=== PATIENT | male | born 1960 | race Caucasian/White ===

== ENCOUNTER 2023-11-22 20:47 | Inpatient (IN) | payer OTHER ==
[~2023-11-22] VITALS: Ht 167.6 cm; Wt 91.6 kg
[2023-11-22 21:01] VITALS: O2SAT 97
[2023-11-22 21:02] VITALS: BP 124/60; PULSE 70; RESP 14; TEMP 98; O2SAT 100
[2023-11-22 22:02] LABS: BASOPHILS # (AUTO) 0.1 K/uL (0.00-0.22); BASOPHILS % (AUTO) 0.7 % (0.0-2.0); EOSINOPHILS # (AUTO) 0.1 K/uL (0-0.4); EOSINOPHILS % (AUTO) 0.5 % (0.0-4.0); HEMATOCRIT 35.4 % (36-52); HEMOGLOBIN 12.1 g/dL (12.0-18.0); LYMPHOCYTES # (AUTO) 0.7 K/uL (2.0-11.5); LYMPHOCYTES % (AUTO) 7.1 % (20.5-51.1); MEAN CORPUSCULAR HEMOGLOBIN 31 pg (27-31); MEAN CORPUSCULAR HGB CONC 34 g/dL (33-37); MONOCYTES # (AUTO) 0.6 K/uL (0.8-1.0); MONOCYTES % (AUTO) 6.5 % (1.7-9.3); NEUTROPHILS # (AUTO) 8.3 K/uL (1.8-7.7); NEUTROPHILS % (AUTO) 85.2 % (42.2-75.2); PLATELET COUNT (AUTO) 230 K/uL (140-450); RED BLOOD CELL COUNT(AUTO) 3.89 MIL/uL (4.20-6.10); RED CELL DISTRIBUTION WIDTH 15.5 % (11.6-13.7); WHITE BLOOD COUNT (AUTO) 9.8 K/uL (4.8-10.8)
[2023-11-22 22:14] LABS: ANION GAP 18.7 (8-16); CALCIUM 8.7 mg/dL (8.5-10.1); CARBON DIOXIDE 22.8 mmol/L (21-32); CREATININE 1.6 mg/dL (0.6-1.3); POTASSIUM 3.5 mmol/L (3.5-5.1)
[2023-11-22 22:21] LABS: ALANINE AMINOTRANSFERASE 29 U/L (12-78); ALBUMIN 3.3 g/dL (3.4-5.0); ALCOHOL, BLOOD < 3 mg/dL (<10); ALKALINE PHOSPHATASE 95 U/L (50-136); ASPARTATE AMINOTRANSFERASE 25 U/L (15-37); BILIRUBIN,DIRECT 0.2 mg/dL (0.0-0.3); CREATINE KINASE, TOTAL 68 U/L (39-308); TOTAL BILIRUBIN 0.7 mg/dL (0.0-1.0); TOTAL PROTEIN, SERUM 7.9 g/dL (6.4-8.2)
[2023-11-22 23:28] LABS: LACTIC ACID 4.3 mmol/L (0.4-2.0)
[2023-11-22 23:32] VITALS: O2SAT 100
[2023-11-22] MEDS: ONDANSETRON 4 MG/2 ML VIAL IVP ONE (23:33)
[2023-11-22] MEDS: CEFEPIME 2,000 MG in DEXTROSE 5% 100 ML IV ONE (23:33)
[2023-11-22 23:36] LABS: BLOOD GAS O2 SAT% 98.9 % (92.0-98.5); BLOOD GAS PCO2 16.7 mmHg (35-45); BLOOD GAS PH 7.674 (7.35-7.45); BLOOD GAS PO2 116.6 mmHg (75-100)
[2023-11-22] MEDS: NACL 0.9% 2,000 ML IV ONE (23:40)
[2023-11-22] MEDS: LORazepam 2 MG/ML VIAL IVP ONE (23:55)
[2023-11-23] VITALS (7 sets, daily range): BP systolic 108–123; BP diastolic 55–58; PULSE 78–80; RESP 18; TEMP 96.8–98.8; O2SAT 97–98
[2023-11-23] MEDS: diphenhydrAMINE 50 MG/ML VIAL IVP ONE (00:59)
[2023-11-23] MEDS: HALOPERIDOL IM 5 MG/ML VIAL IVP ONE (01:00)
[2023-11-23] MEDS ORDERED: CEFEPIME 2,000 MG VIAL IV ONE (01:06)
[2023-11-23 01:39] LABS: APPEARANCE,URINE CLEAR (CLEAR); BILIRUBIN,URINE NEGATIVE (NEGATIVE); BLOOD, URINE NEGATIVE (NEGATIVE); COLOR,URINE YELLOW (YELLOW); LEUKOCYTE ESTERASE ,URINE NEGATIVE (NEGATIVE); NITRITE, URINE NEGATIVE (NEGATIVE); PH,URINE 7.5 (5.0-9.0); PROTEIN,URINE TRACE (NEGATIVE); UGLUCOSE NEGATIVE (NEGATIVE); UROBILINOGEN,URINE 0.2 EU/dL (0.2 - 1)
[2023-11-23] MEDS: ACETAMINOPHEN 650 MG SUPP RC ONE (01:41)
[2023-11-23 02:07] LABS: AMPHETAMINE, URINE NEGATIVE ng/ml (NEG <=1000); BARBITURATE, URINE NEGATIVE ng/ml (NEG <=200); BENZODIAZEPINE, URINE POSITIVE ng/mL (NEG <=200); CANNABINOID, URINE NEGATIVE ng/mL (NEG <=50); COCAINE, URINE NEGATIVE ng/mL (NEG <=300); OPIATE, URINE NEGATIVE ng/mL (NEG <=2000); PHENCYCLIDINE SCREEN,URINE NEGATIVE ng/mL (NEG <=25)
[2023-11-23 04:01] LABS: INR 1.16 (0.8-1.2); PARTIAL THROMBOPLASTIN TIME 25.6 secs (22-35.6); PROTHROMBIN TIME 12.1 secs (10.8-13.4)
[2023-11-23] MEDS ORDERED: CEFEPIME 2,000 MG in DEXTROSE 5% 100 ML IV SCH (06:05)
[2023-11-23] MEDS: NACL 0.9% 1,000 ML IV SCH (06:05)
[2023-11-23] MEDS ORDERED: ONDANSETRON 4 MG/2 ML VIAL IVP PRN (06:05)
[2023-11-23 10:15] LABS: MAGNESIUM 1.1 mg/dL (1.8-2.4); PHOSPHORUS 3.5 mg/dL (2.5-4.9)
[2023-11-23] MEDS ORDERED: PANT40EC (13:35)
[2023-11-23] MEDS ORDERED: LORazepam 2 MG/ML VIAL IM SCH (13:40)
[2023-11-23] MEDS: LORazepam 2 MG/ML VIAL IM/IVP SCH (13:46)
[2023-11-23] MEDS ORDERED: ATOR40TA PO (13:54)
[2023-11-23] MEDS ORDERED: SYN.05 PO (13:54)
[2023-11-23] MEDS ORDERED: RIVA20TA PO (13:54)
[2023-11-23] MEDS ORDERED: PRO5 PO (13:54)
[2023-11-23] MEDS: CEFEPIME 2,000 MG in DEXTROSE 5% 100 ML IV SCH (14:12)
[2023-11-23] MEDS: MAG SULF 2000 MG/WATER PREMIX 50 ML IV SCH (16:47)
[2023-11-23] MEDS ORDERED: AZITHROMYCIN 500 MG in DEXTROSE 5% 250 ML IV SCH (18:00)
[2023-11-23] MEDS: AZITHROMYCIN 500 MG in DEXTROSE 5% 250 ML IV SCH (20:48)
[2023-11-24 04:00] VITALS: BP 125/71; PULSE 81; RESP 20; TEMP 96.6; O2SAT 98
[2023-11-24] MEDS ORDERED: diphenhydrAMINE 50 MG/ML VIAL IVP SCH (06:40)
[2023-11-24] MEDS ORDERED: LORazepam 2 MG/ML VIAL IM/IVP SCH (06:40)
[2023-11-24 07:34] VITALS: BP 144/78; PULSE 79; RESP 16; TEMP 95.2; O2SAT 99
[2023-11-24 07:38] LABS: ANION GAP 15.3 (8-16); CARBON DIOXIDE 22.6 mmol/L (21-32); CREATININE 1.2 mg/dL (0.6-1.3)
[2023-11-24 07:40] LABS: BASOPHILS % (AUTO) 0.1 % (0.0-2.0); EOSINOPHILS # (AUTO) 0.2 K/uL (0-0.4); EOSINOPHILS % (AUTO) 3.1 % (0.0-4.0); HEMATOCRIT 31.1 % (36-52); HEMOGLOBIN 10.9 g/dL (12.0-18.0); LYMPHOCYTES # (AUTO) 0.6 K/uL (2.0-11.5); LYMPHOCYTES % (AUTO) 7.7 % (20.5-51.1); MEAN CORPUSCULAR HEMOGLOBIN 32 pg (27-31); MEAN CORPUSCULAR HGB CONC 35 g/dL (33-37); MEAN CORPUSCULAR VOLUME 90.2 fL (80-94); MONOCYTES # (AUTO) 0.5 K/uL (0.8-1.0); MONOCYTES % (AUTO) 6.7 % (1.7-9.3); NEUTROPHILS # (AUTO) 6.2 K/uL (1.8-7.7); NEUTROPHILS % (AUTO) 82.4 % (42.2-75.2); PLATELET COUNT (AUTO) 196 K/uL (140-450); RED BLOOD CELL COUNT(AUTO) 3.44 MIL/uL (4.20-6.10); RED CELL DISTRIBUTION WIDTH 15.4 % (11.6-13.7); WHITE BLOOD COUNT (AUTO) 7.5 K/uL (4.8-10.8)
[2023-11-24 07:44] LABS: POTASSIUM 2.9 mmol/L (3.5-5.1)
[2023-11-24 08:00] VITALS: PULSE 72; RESP 16; O2SAT 99
[2023-11-24 08:04] LABS: MAGNESIUM 1.5 mg/dL (1.8-2.4); PHOSPHORUS 3.8 mg/dL (2.5-4.9)
[2023-11-24] MEDS: KCL 20 MEQ IN 100 mL PREMIX 200 ML IV SCH (11:28)
[2023-11-24] MEDS: MAG SULF 2000 MG/WATER PREMIX 50 ML IV SCH (14:49)
[2023-11-24 16:00] VITALS: BP 131/75; PULSE 79; RESP 16; TEMP 96.5; O2SAT 98
[2023-11-24 18:52] VITALS: BP 124/74; PULSE 73; RESP 16; TEMP 96.4; O2SAT 99
[2023-11-24 19:52] VITALS: BP 137/81; PULSE 79; RESP 18; TEMP 98
== END 2023-11-24 20:45 | disposition short-term general hospital (02) | DRG 682 ==
LOC: MED 20:47 → MMU 11-23 06:04 → MTU 11-23 11:22
PROVIDERS: ADMIT Student in an Organized Health Care Education/Training Program; ATTEND Student in an Organized Health Care Education/Training Program
DX: N17.9 Acute kidney failure, unspecified (principal); I21.A1 Myocardial infarction type 2; J18.9 Pneumonia, unspecified organism; E87.1 Hypo-osmolality and hyponatremia; E87.20 Acidosis, unspecified; T45.1X5A Adverse effect of antineoplastic and immunosuppressive drugs, initial encounter; E86.0 Dehydration; E87.6 Hypokalemia; I10 Essential (primary) hypertension; E11.9 Type 2 diabetes mellitus without complications; Z79.899 Other long term (current) drug therapy; Y92.89 Other specified places as the place of occurrence of the external cause; Z85.01 Personal history of malignant neoplasm of esophagus; Z85.46 Personal history of malignant neoplasm of prostate
CPT/HCPCS: 36415; 36600; 70450; 71045; 76770; 80048; 80076; 80305; 81003; 82140; 82550; 82803; 83605; 83735; 84100; 84484; 85025; 85610; 85730; 87040; 87081; 87086; 93005; 96365; 96374; 97116; 97163-GP; 99291; G0482; J0456; J0692; J0696; J1200; J1630; J1644; J2060; J2405; J3475; J3480; J7060; Q0092